=== PATIENT | female | born 1950 | race Caucasian/White ===

== ENCOUNTER 2018-08-08 17:23 | Emergency (ER) | payer MEDICARE ==
[~2018-08-08] VITALS: Ht 167.6 cm; Wt 97.0 kg
[~2018-08-08 17:23] MED LIST: ALPR0.5T8 PO; CEPH-357 PO; FLUO20CA39 PO; LISI1TAB11 PO; ONDA4TAB12 PO; PHEN-716 PO
[2018-08-08] MEDS ORDERED: acetaminophen 325mg tablet PO ONE (19:25)
[2018-08-08] MEDS ORDERED: HYDROcodone/acetaminophen 10/325mg tab PO ONE (21:45)
[2018-08-08 22:25] VITALS: BP 123/64
== END 2018-08-08 23:28 | disposition home or self-care (01) ==
LOC: ER 17:39
DX: S92.341A Displaced fracture of fourth metatarsal bone, right foot, initial encounter for closed fracture (principal); M25.522 Pain in left elbow; M79.631 Pain in right forearm; Z87.891 Personal history of nicotine dependence; Z88.6 Allergy status to analgesic agent; Z88.2 Allergy status to sulfonamides; W10.9XXA Fall (on) (from) unspecified stairs and steps, initial encounter; Y93.89 Activity, other specified; Y92.89 Other specified places as the place of occurrence of the external cause; Y99.8 Other external cause status
CPT/HCPCS: 73080; 73610; 99284